=== PATIENT | male | born 1955 | race Caucasian/White ===

== ENCOUNTER 2016-08-07 14:44 | Inpatient (IN) | payer BC ==
[~2016-08-07] VITALS: Ht 170.2 cm; Wt 99.2 kg
[2016-08-07 15:24] LABS: EOSINOPHIL (%) 0.3 % (0-5); HEMATOCRIT 43.5 % (38.0-50.0); IMMATURE GRANULOCYTE (%) 0.4 % (0.0-0.7); IMMATURE GRANULOCYTE COUNT 0.4 K/uL; LYMPHOCYTE COUNT 1.2 K/uL (1.0-2.8); MCH 31.5 PG (29.0-34.0); MCHC 34.7 G/DL (30.0-36.0); MCV 90.6 FL (86-99); MEAN PLAT.VOLUME 9.6 uM^3 (9.0-12.4); MONOCYTE (%) 11.1 % (3-12); MONOCYTE COUNT 1.2 K/uL (0-0.8); NEUTROPHIL (%) 76.3 % (45-76); PLATELET COUNT 191 K/uL (156-360); RBC DIS.WIDTH-SD 39.1 % (39-53); WHITE BLOOD COUNT 10.5 K/uL (4.1-10.2)
[2016-08-07 15:35] LABS: D-DIMER ELISA 1.69 mg/L FEU (< 0.57)
[2016-08-07 15:36] LABS: CHLORIDE 106 mEq/L (99-109); POTASSIUM 4.3 mEq/L (3.7-5.4); SODIUM 140 mEq/L (136-147)
[2016-08-07 15:38] LABS: GLUCOSE 111 mg/dL (70-99)
[2016-08-07 15:40] LABS: ANION GAP 8 MEQ/L (2-14); TOTAL BILIRUBIN 1.3 mg/dL (0.0-1.0)
[2016-08-07 15:42] LABS: ALKALINE PHOSPHATASE 103 IU/L (3-129); GFR ESTIMATE (CALCULATED) > 59 mL/min/
[2016-08-07 15:43] LABS: UREA NITROGEN (BUN) 14 mg/dL (9-23)
[2016-08-07 15:47] LABS: TROP-I INTERPRETATION NEGATIVE; TROPONIN-I < 0.01 ng/mL (0.0-0.30)
[2016-08-07 17:46] LABS: INTER. NORMALIZED RATIO 1.1; PROTHROMBIN TIME 11.2 (9.2-11.2); PTT 27.8 (25-32)
[2016-08-07 20:42] VITALS: BP 141/89
[2016-08-07 23:43] VITALS: BP 119/68
[2016-08-08 04:04] VITALS: BP 119/75
[2016-08-08 08:05] VITALS: BP 122/74
[2016-08-08 08:32] LABS: HEMATOCRIT 38.6 % (38.0-50.0); MCH 31.5 PG (29.0-34.0); MCHC 34.5 G/DL (30.0-36.0); MCV 91.5 FL (86-99); MEAN PLAT.VOLUME 9.8 uM^3 (9.0-12.4); PLATELET COUNT 185 K/uL (156-360); RBC DIS.WIDTH-SD 39.4 % (39-53); RED BLOOD COUNT 4.22 M/uL (4.00-5.50); WHITE BLOOD COUNT 9.1 K/uL (4.1-10.2)
[2016-08-08 12:20] VITALS: BP 125/80
[2016-08-08 19:26] VITALS: BP 129/79
[2016-08-08 23:46] VITALS: BP 118/74
[2016-08-09 03:44] VITALS: BP 118/70
[2016-08-09 05:20] LABS: CHLORIDE 109 mEq/L (99-109); POTASSIUM 4.4 mEq/L (3.7-5.4); SODIUM 140 mEq/L (136-147)
[2016-08-09 05:33] LABS: EOSINOPHIL (%) 1.9 % (0-5); EOSINOPHIL COUNT 0.2 K/uL (0-0.3); HEMATOCRIT 37.4 % (38.0-50.0); IMMATURE GRANULOCYTE (%) 0.3 % (0.0-0.7); IMMATURE GRANULOCYTE COUNT 0.2 K/uL; LYMPHOCYTE COUNT 1.5 K/uL (1.0-2.8); MCH 31.5 PG (29.0-34.0); MCHC 35.3 G/DL (30.0-36.0); MCV 89.3 FL (86-99); MEAN PLAT.VOLUME 9.5 uM^3 (9.0-12.4); MONOCYTE (%) 10.5 % (3-12); MONOCYTE COUNT 0.8 K/uL (0-0.8); NEUTROPHIL (%) 68.5 % (45-76); NEUTROPHIL COUNT 5.5 K/uL (1.8-6.4); PLATELET COUNT 195 K/uL (156-360); RBC DIS.WIDTH-CV 11.5 % (11.8-14.6); RBC DIS.WIDTH-SD 36.7 % (39-53); RED BLOOD COUNT 4.19 M/uL (4.00-5.50)
[2016-08-09 05:43] LABS: GLUCOSE 118 mg/dL (70-99)
[2016-08-09 05:44] LABS: ANION GAP 14 MEQ/L (2-14)
[2016-08-09 05:46] LABS: GFR ESTIMATE (CALCULATED) > 59 mL/min/
[2016-08-09 05:47] LABS: UREA NITROGEN (BUN) 12 mg/dL (9-23)
[2016-08-09 08:38] VITALS: BP 114/68
[2016-08-09 16:50] VITALS: BP 111/63
[2016-08-09 23:57] VITALS: BP 121/72
[2016-08-10 06:28] LABS: HEMATOCRIT 39.5 % (38.0-50.0); MCH 29.9 PG (29.0-34.0); MCHC 33.4 G/DL (30.0-36.0); MCV 89.6 FL (86-99); MEAN PLAT.VOLUME 9.8 uM^3 (9.0-12.4); PLATELET COUNT 202 K/uL (156-360); RBC DIS.WIDTH-CV 11.9 % (11.8-14.6); RBC DIS.WIDTH-SD 38.7 % (39-53); RED BLOOD COUNT 4.41 M/uL (4.00-5.50); WHITE BLOOD COUNT 6.8 K/uL (4.1-10.2)
[2016-08-10 07:35] VITALS: BP 113/74
[2016-08-10] MEDS ORDERED: AUGMENTIN500 MG PO (11:08)
[2016-08-10] MEDS ORDERED: ELIQUIS5 MG PO (11:08)
== END 2016-08-10 11:34 | disposition home or self-care (01) | DRG 175 ==
LOC: EME → EDBD 15:08 → EDOF 19:50 → 2EASTP 19:50
PROVIDERS: Emergency Medicine; Internal Medicine
DX: I26.99 Other pulmonary embolism without acute cor pulmonale (principal); J96.01 Acute respiratory failure with hypoxia; J18.9 Pneumonia, unspecified organism; S22.41XD Multiple fractures of ribs, right side, subsequent encounter for fracture with routine healing; I10 Essential (primary) hypertension; R21 Rash and other nonspecific skin eruption; E66.9 Obesity, unspecified; Z68.34 Body mass index [BMI] 34.0-34.9, adult; Z86.72 Personal history of thrombophlebitis
CPT/HCPCS: 71020; 71275; 80048; 80053; 83735; 84484; 85025; 85027; 85379; 85610; 85730; 87040; 93005; 93970; 99281; 99285; J0696; J1200; J7050